=== PATIENT | female | born 1945 | race Caucasian/White ===

== ENCOUNTER 2016-09-23 13:54 | Emergency (ER) | payer OTHER ==
[2016-09-23 14:11] VITALS: BP 121/75; PULSE 80; RESP 18; TEMP 99; O2SAT 94
--- NOTE | 2016-09-23 14:32 | EDPHY ---
H & P Time Seen by Provider: 09/23/16 14:13 HPI/ROS: This patient sustained a wasp sting to the left posterior calf 3 days prior to arrival. She reported that there was a large bulla associated with this that has ruptured a day ago and left a wound to her leg. There was significant swelling that has now resolved. There is mild redness around the leg wound and she is concerned about potential infection is curious how to dress the wound. She reports mild discomfort associated with the area. No itching. She has not taken any medications except for Benadryl initially which seemed to help with initial itching and swelling. ROS: No fevers or chills. She does report that she had fatigue and flu-like symptoms for the 1st 24 hours after the sting. No other constitutional symptoms. HEENT: No facial swelling. Pulmonary: No shortness of breath or wheezing. Cardiovascular: No heart palpitations or lightheadedness GI: No nausea vomiting Integumentary no generalized skin rash. There is a small amount of drainage from the below that ruptured but none since then. Neuro: No numbness or tingling 7 point ROS is otherwise negative Past Medical/Surgical History: Coronary artery disease Hypertension IBS Immunocompetent Smoking Status: Current every day smoker Physical Exam: Physical Exam Vital signs are normal. General: No acute distress HEENT: No angioedema. Normal voice with no stridor Eyes: Pupils equal and react to light. Extraocular motions are intact. Lungs: No respiratory distress. Cardiac: Brisk capillary refill is intact throughout. Pulses are 2+ and symmetric in the affected extremity. Skin: Normal except for left leg: That exam is notable for a 4 x 2 cm wound for-former site of a bulla that is now partial-thickness wounds-loss of superficial layers of skin with a scab colored base no deep ulceration. Minimal erythema at the border of this. There are 2 3 mm vesicles with clear fluid adjacent to this. No other significant erythema or warmth to touch. No fluctuance. No petechia or purpura. Neuro: Alert and oriented x3 with no sensorimotor deficits in the affected extremity Initial differential diagnosis: Wasps sting with resultant wound, possible minimal wound infection versus normal inflammatory changes with healing Constitutional: Initial Vital Signs Temperature (C) 37.2 C 09/23/16 13:56 Heart Rate 80 09/23/16 13:56 Respiratory Rate 18 09/23/16 13:56 Blood Pressure 121/75 H 09/23/16 13:56 O2 Sat (%) 94 09/23/16 13:56 O2 Delivery Mode Room Air Allergies/Adverse Reactions: codeine Allergy (Severe, Verified 09/23/16 14:12) Other-Enter Comments morphine [Morphine] Allergy (Severe, Verified 09/23/16 14:12) Other-Enter Comments Penicillins Allergy (Severe, Verified 09/23/16 14:12) Hives pentazocine lactate [From [place]win] Allergy (Severe, Verified 09/23/16 14:12) Hives gluten Allergy (Intermediate, Verified 09/23/16 14:12) Diarrhea wheat Allergy (Intermediate, Verified 09/23/16 14:12) Itching Home Medications: Medication Instructions Recorded Plavix (RX) 07/18/13 Trileptal 07/18/13 Ativan 09/23/16 Doxycycline Hyclate [Vibramycin 100 mg PO BID #14 cap 09/23/16 100 MG (*)] Pravastatin Sodium 09/23/16 Vasotec 10 MG (*) 09/23/16 MDM/Departure - [facility] ED Course/Re-evaluation: I cleaned the wound and obtained a wound culture which is sent and pending. Tegaderm was placed by our nurse. I advised the patient to clean the wound daily or every other day and apply Tegaderm and monitor the redness with plan use warm packs. She is given a doxycycline script to start taking should she develop any increasing redness. 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 She has no clinical evidence of abscess, sepsis neurovascular compromise or other concerning findings. She understands the need to return if she develops any worsening of her symptoms despite the treatment plan. - Depart Disposition: Home, Routine, Self-Care Clinical Impression: Wasp sting Qualifiers: Encounter type: initial encounter Injury intent: accidental or unintentional Qualified Code(s): T63.461A - Toxic effect of venom of wasps, accidental ( unintentional), initial encounter Condition: Good Instructions: Insect Bite or Sting (ED) Additional Instructions: Diagnosis: Wasp sting Plan: Tegaderm dressing-change daily or every other day after gently cleaning Apply warm packs to 3 times a day Ibuprofen for discomfort if needed. Monitor the appearance. If you develop increasing redness to the skin warmth to touch, start doxycycline antibiotic in addition. Return for any significant worsening despite the treatment plan Prescriptions: Doxycycline Hyclate [Vibramycin 100 MG (*)] 100 mg PO BID #14 cap Referrals: Minnie Colon MD [Primary Care Provider] - As per Instructions
== END 2016-09-23 14:39 | disposition home or self-care (01) ==
LOC: CED 13:54
DX: T63.461A Toxic effect of venom of wasps, accidental (unintentional), initial encounter (principal); I25.10 Atherosclerotic heart disease of native coronary artery without angina pectoris; I10 Essential (primary) hypertension; F17.200 Nicotine dependence, unspecified, uncomplicated